=== PATIENT | female | born 1950 | race Caucasian/White ===

== ENCOUNTER → 2017-06-27 | Outpatient (CLI) | payer MEDICARE, MEDICAID ==
[~2017-06-27] MED LIST: AMLO5TAB2 PO; ASPI-13 PO; ASPI-496 PO; CLEMASTINE PO; DIAZ2TAB3 PO; DIAZ5TAB4 PO; DOCU100C PO; ESOM20CA PO; FURO40TA6 PO; GABA300C10 PO; METF500T4 PO; METO50TA82 PO; OMEP40CA6 PO; OXYC5CAP4 PO; POTA10TA5 PO; QUET50TA5 PO; REGADENOSON 0.4 MG/5 ML SYRINGE ONE; SENN8.6T58 PO; SIMV40TA3 PO; TIZA4TAB PO; VALS160T3 PO; ZOLP10TA5 PO
== END | disposition home or self-care (01) ==
LOC: CFH 11:29
PROVIDERS: ATTEND Internal Medicine Cardiovascular Disease
DX: Z01.810 Encounter for preprocedural cardiovascular examination (principal); I10 Essential (primary) hypertension; R00.1 Bradycardia, unspecified
CPT/HCPCS: 78452; 93017; 93306; A9502; J2785

== ENCOUNTER → 2018-01-29 | Outpatient (CLI) | payer MEDICARE, MEDICAID ==
[~2018-01-29] MED LIST changes: +DOCU-180 PO; -DOCU100C PO; +OXYC5CAP2 PO; -OXYC5CAP4 PO; -REGADENOSON 0.4 MG/5 ML SYRINGE ONE
== END ==
LOC: CFH 14:16
PROVIDERS: ATTEND Nurse Practitioner Family
DX: R60.9 Edema, unspecified (principal); V89.2XXA Person injured in unspecified motor-vehicle accident, traffic, initial encounter

== ENCOUNTER → 2018-06-03 | Outpatient (CLI) | payer MEDICARE, MEDICAID ==
[~2018-06-03] MED LIST changes: -METF500T4 PO; +METF500T5 PO
== END ==
LOC: CFH 16:21
PROVIDERS: ATTEND Family Medicine Sports Medicine
DX: Z02.9 Encounter for administrative examinations, unspecified (principal)

== ENCOUNTER → 2018-09-18 | Outpatient (CLI) | payer MEDICARE, MEDICAID ==
[~2018-09-18] MED LIST changes: -AMLO5TAB2 PO; +AMLO5TAB7 PO; +METF500T17 PO; -METF500T5 PO
== END | disposition home or self-care (01) ==
LOC: CFH 14:31
PROVIDERS: ATTEND Nurse Practitioner Family
DX: Z02.9 Encounter for administrative examinations, unspecified (principal)